=== PATIENT | female | born 2005 | race African-American/Black ===

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

== ENCOUNTER 2024-02-23 05:15 | Inpatient (IN) | payer OTHER, SELFPAY ==
[2024-02-23] VITALS (11 sets, daily range): BP systolic 121–137; BP diastolic 76–82; PULSE 66–121; RESP 11–40; TEMP 36.4–37.3; O2SAT 100; BMI 28.9
--- NOTE | ~2024-02-23 | MR_ITS ---
EXAMINATION: MR brain/brain stem wo/w con DATE: 02/23/2024 16:18 INDICATION: Seizures TECHNIQUE: Magnetic resonance imaging (MRI) of the brain and brainstem was performed without and with 15 mL Multihance intravenous contrast. Sequences included sagittal and axial T1-weighted SE, axial d iffusion-weighted FS SE, axial T2*-weighted GRE, axial T2-weighted FLAIR Propeller, axial T2-weighted Propeller, coronal T2-weighted FLAIR, and coronal T1-weighted 3D FSPGR. Postcontrast axial, sagittal and coronal T1-weighted SE was obtained. Apparent diffusion coefficient (ADC) maps were created. COMPARISON: CT dated 02/23/2024 and 12/16/2018 FINDINGS: There are no areas of restricted diffusion to suggest acute infarction. No intracranial hemorrhage or abnormal intracranial mass lesion. There are no intraparenchymal signal abnormalities seen on the ot her pulse sequences. The ventricles are symmetric and normal in size. The bilateral hippocampi appear normal and symmetric. No evident patten matter heterotopias or other evident normal migrational abnorm alities. There are no abnormal extra-axial fluid collections. Flow voids are seen in the cerebral art eries on the T2-weighted sequences consistent with their expected patency. Visualized orbits and soft tissues are unremarkable. There are no areas of abnormal enhancement on the post contrast images. IMPRESSION: 1. Normal brain MR. Reviewed, dictated and finalized at location A. IMPRESSION: 1. Normal brain MR.
--- NOTE | ~2024-02-23 | CT_ITS ---
Non-contrast Head CT History: Seizure Technique: Axial non-contrast imaging of the brain was performed. Dose reduction technique was used on this scan by utilizing automated exposure control and iterative reconstruction technique. The dose -length product (DLP) was 832.33 mGy-cm. Findings: There is no evidence of intracranial hemorrhage, mass lesion, or acute infarct. Brain par enchyma appears normal. The ventricles and subarachnoid spaces are normal in size. The calvarium ap pears normal. The visualized paranasal sinuses and mastoid air cells are clear. Impression: No significant abnormality seen. Reviewed, dictated and finalized at location . Impression: No significant abnormality seen.
--- NOTE | 2024-02-23 05:22 | PM.IMHP ---
H&P: HPI History of Present Illness Date/Time: 02/23/24 05:22 Chief Complaint: Possible seizure Narrative: 18-year-old female with past medical history of anxiety and depression who presented to the ER at [facility] for possible seizure. Information comes from ER physician report and documentation from the outside facility. Patient had seizure-like activity while riding in the car with family members. Episode lasted less than a minute. EMS also reported the patient had another episode of seizure-like activity lasting 20-30 seconds. She received 10 mg of intranasal Versed. On arrival to the hospital patient was sleepy and reportedly had another episode of seizure-like activity lasting about 20 seconds. She received 2 mg of Ativan at that time. She stated that the episode started right after she ate a piece of a marijuana gummy that family friend had given her. She had never tried a marijuana edibles before. She denies any history of use of benzodiazepines. Her urine drug screen was positive for benzodiazepines. Her urine drug screen was collected about an hour and half to 2 hours after she had received intranasal Versed and IV Ativan. I am uncertain if the administration of these medications in such a short interval prior to collection of the sample which cause positive urine drug screen. Patient denies any preceding headache, vision changes, fever or other ill symptoms. She states that she has long history of anxiety and depression but has not had her hydroxyzine or sertraline refilled since July because she is no longer on her parent's insurance. CT scan of the brain demonstrated no acute process at outside facility. CBC from outside facility demonstrated hemoglobin 10.5 white blood cell count 7 platelet count 304 sodium was 135 potassium 3.3 chloride 110 BUN 9 creatinine 0.9 serum bicarb 20 and glucose of 115. EKG from outside facility was reviewed and demonstrated right bundle-branch block patient's heart rate initially at the outside facility was between 110 and 130. Her heart rate did come down to 84. She reportedly received 2 L of normal saline bolus. Her urine drug screen at outside facility demonstrated marijuana and benzodiazepines. Patient is somnolent. The number she provides for her mother does not work in is different than the number provided in the computer. Nursing staff was unable to reach patient's family on either phone line to get further report of recent events. Review of Systems Review of Systems: 12 systems were reviewed with pertinent positives and negatives per HPI. Except as documented in the HPI, all other systems were reviewed and are negative. [facility] Past Medical History Medical History (Updated 02/23/24 @ 07:34 by Oliva Fagan DO) Anxiety Depression Iron deficiency anemia Surgical History Surgical History (Updated 02/23/24 @ 07:06 by Oliva Fagan DO) No history of previous surgery Social History Social History (Updated 02/23/24 @ 07:07 by Oliva Fagan DO) Social History: The patient reports that her mother is her emergency contact. However she states that she lives with her grandmother. She denies ever having any history of tobacco use alcohol use or illicit substance use before she is marijuana edibles today. Code status: Full code Surrogate decision maker: Mother Smoking status: Never smoker Alcohol intake: unknown Substance use: unknown Substance use type: marijuana Do You Feel Safe in your Home?: Yes Lack of Transportation: No Lack of Food: Never True Current Housing: I Have Housing Concerned About Future Housing: No Difficulty Paying Gas/Electric Bills: No Difficulty Paying for Meds: YES Currently Unemployed: Decline to Answer Education: Decline to Answer Difficulty w/ Childcare or Family Care: No Spiritual care concerns: No Meds Home Medications and Allergies Home Medications Medicati
--- NOTE | 2024-02-23 05:27 | ADMGEN ---
This patient, Yaritza Patel, was admitted to Medical Room 343-01. Patient/family oriented to hospital policies and general routines including ID bracelet, bed and alarms, visiting hours, pain management, procedures, bathroom and other care routines, personal items, smoking policy, room service/diet, and visiting hours. Information on how to activate the Rapid Response Team has been discussed. Patient/Family are encouraged to report perceived risks to care and to ask questions if they do not understand what they are told or what they should do.
[2024-02-23] MEDS: levETIRAcetam 1000MG/NACL100ML 1,000 MG/100 ML BAG 400 MG IVPB ×2 (05:30→11:03)
[2024-02-23] MEDS: SODIUM CHLORIDE 0.9% IV 1,000 ML 100 ML IV CONT ×2 (05:40→16:48)
[2024-02-23 05:43] LABS: Glucose Point of Care 97 mg/dl (65-105)
--- NOTE | 2024-02-23 05:59 | ECG_ITS ---
Test Date: 2024-02-23 06:12:13 Measurements Intervals [place] Rate: 72 P: 64 WA: 173 QRS: 11 QRSD: 136 T: 46 QT: 399 QTc: 439 Interpretive Statements SINUS RHYTHM WITH SINUS ARRHYTHMIA RIGHT BUNDLE BRANCH BLOCK BASELINE ARTIFACT- V1 ABNORMAL ECG No previous ECG available for comparison Electronically Signed On 02-23-2024 07:49:57 CDT by Alejandro Bojorquez D.O.
[2024-02-23 06:30] LABS: Hematocrit 31.6 % (37.0-47.0); Hemoglobin 9.8 g/dL (12.0-15.0); Mean Corpuscular Hemoglobin 28.6 pg (26-34); Mean Corpuscular Volume 92.1 fl (80-100); Platelet Count Result 229 k/mm3 (150-375); Red Blood Count 3.43 M/mm3 (4.2-5.4); Red Cell Distribution Width 13.3 % (11.5-14.5); White Blood Count 6.5 K/mm3 (4.5-10.0)
[2024-02-23 06:43] LABS: Alanine Aminotransferase 13 U/L (6-35); Albumin Level 3.5 g/dL (3.5-5.1); Alkaline Phosphatase 55 U/L (38-126); Anion Gap 8 mmol/L (4-12); Aspartate Amino Transferase 20 U/L (14-36); Bilirubin,Total 0.4 mg/dL (0.2-1.3); Blood Urea Nitrogen 5 mg/dL (7-17); Calcium 8.4 mg/dL (8.4-10.2); Carbon Dioxide 22 mmol/L (22-30); Chloride 108 mmol/L (98-107); Estimated CRCL calculation 94 ml/min; Estimated Glomerular Filt Rate > 60; Glucose 89 mg/dL (65-110); Potassium 3.7 mmol/L (3.4-5.0); Sodium 138 mmol/L (137-145)
[2024-02-23] MEDS: ENOXAPARIN 40 MG/0.4 ML SYRINGE SUB-Q (09:00)
[2024-02-23] MEDS: FERROUS SULFATE 325 MG TABLET DR PO (09:00)
[2024-02-23] MEDS: LORazepam INJ (*CRX) 2 MG/ML VIAL 1 MG IV PUSH (10:27)
--- NOTE | 2024-02-23 10:29 | PM.IMPN ---
Progress Note: A&P Assessment and Plan (1) Seizure-like activity: Code(s): R56.9 - Unspecified convulsions Status: Acute Assessment and Plan: 02/23/24: New onset seizures,Patient had 3 other witnessed episodes seizure activity after ingesting marijuana gummy. No family history of seizure activity noted per patient report Tonic clonic seizure activity today witnessed by nursing Increase Keppra to 1500 mg b.i.d. Patient was given 1 g of Keppra during seizure today along with 1 mg Ativan IV push followed by another 2 mg Ativan IV push Will get CT of the brain today MRI ordered Neurology consulted Ativan changed to 2 mg q.1 hour as needed for seizure activity We will go ahead and repeat labs today Urine drug screen outside hospital was positive for benzodiazepines however patient denied history of use. Urine drug screen was noted to be drawn after she was given intranasal Versed and Ativan for her 1st couple seizures Acute 2 hour neuro checks Transfer to IMU (2) Iron deficiency anemia: Qualifiers: Iron deficiency anemia type: unspecified iron deficiency Qualified Code(s): D50.9 - Iron deficiency anemia, unspecified Code(s): D50.9 - Iron deficiency anemia, unspecified Status: Acute Assessment and Plan: 02/23/24: Hemoglobin 9.8, MCV 92.1 Will check for sickle cell, sed rate, iron, ferritin, TSH, vitamin B12, and folic acid Continue ferrous sulfate Continue to trend (3) Anxiety: Code(s): F41.9 - Anxiety disorder, unspecified Status: Acute Assessment and Plan: 02/23/24: Hydroxyzine 25 mg capsule held has patient states that she has not taking these medications since the end july when she was still on her parents insurance (4) Depression: Code(s): F32.A - Depression, unspecified Status: Acute Assessment and Plan: 02/23/24: Will hold sertraline 100 mg tab as patient states that she has not been taking this medication since the end july when she was taken off her parent's insurance. Time Spent With Patient Time with patient: Greater than 35 minutes Subjective Date/time seen: 02/23/24 10:29 Interval history: This is a 18-year-old female with a significant past medical history of anxiety and depression who presented originally to [facility] for possible seizures. She was transferred to our facility for neuro coverage. Patient had witnessed seizure by friends after ingesting a marijuana gummy and the 1st episode lasted for less than 1 minute. EMS noted another seizure EN route to [facility] lasting 20-30 seconds. She was given 10 mg of intranasal Versed at that time. On arrival to the hospital she was noted to have another seizure lasting about 20 seconds and received 2 mg of Ativan at that time. Workup in the hospital included labs that revealed a hemoglobin of 9.8 initially otherwise unremarkable. She does have a procalcitonin pending. Patient did have a urine drug screen at the outside hospital which was positive for benzos. Patient denied use of benzos prior to this admission. She did receive Versed and Ativan a few times before this was drawn however it is unclear at this time if the seizure activity is from benzodiazepine withdrawal. When I originally assessed patient she was alert to voice and oriented x3 very lethargic, fatigued in the bed. She denies any fever, chills, nausea, vomiting, diarrhea, abdominal pain, chest pain, shortness a breath. She does state that she has a headache. When I left her room transport was there to get her for MRI. I was then called around 10:20 this morning from bedside nursing who states patient is currently in active tonic clonic seizure and nursing was in the middle of giving 1 mg IV Ativan. After 5 minutes patient was still noted to be in tonic clonic seizure and we repeated a dose of Ativan 2 mg IV push. Jerking stopped and patient lying quietly in the bed
[2024-02-23] MEDS: LORazepam INJ (*CRX) 2 MG/ML VIAL IV PUSH ×3 (10:41→19:15)
--- NOTE | 2024-02-23 11:00 | PC.NURSE ---
Coil Wrapper called to bedside at 1023 by care coordination for seizure activity. REJI Hope was notified and returned to bedside . New orders given - see MAR. Patient to be transferred to IMU for q 2H Neuro checks
--- NOTE | 2024-02-23 11:36 | PC.NURSE ---
Grandmother Bernice called to check on patient. Updated contact numbers and informed her of patient status and transfer to IMU
[2024-02-23 12:03] LABS: Basophils Absolute Auto 0.1 K/mm3 (0.0-0.1); Basophils Percent Auto 1.4 % (0.2-1.2); Eosinophils Absolute Auto 0.1 K/mm3 (0-0.3); Eosinophils Percent Auto 1.9 % (0-4.4); Hematocrit 32.1 % (37.0-47.0); Immature Granulocyte Absolute 0.02 K/mm3 (0.00-0.031); Immature Granulocyte Percent A 0.3 % (0-0.5); Lymphocytes Percent Auto 27.9 % (18.3-44.2); Mean Corpuscular HGB Conc 31.2 g/dl (32-36); Mean Corpuscular Hemoglobin 27.8 pg (26-34); Mean Corpuscular Volume 89.2 fl (80-100); Monocytes Absolute Auto 0.5 K/mm3 (0.1-0.6); Monocytes Percent Auto 8.7 % (2.6-8.5); Neutrophils Absolute Auto 3.4 K/mm3 (1.3-6.7); Neutrophils Percent Auto 59.8 % (45.5-73.1); Platelet Count Result 253 k/mm3 (150-375); Red Cell Distribution Width 13.2 % (11.5-14.5); White Blood Count 5.7 K/mm3 (4.5-10.0)
[2024-02-23 12:04] LABS: Immature Reticulocyte Fraction 17.5 % (3.0-15.9); Reticulocyte Percent 1.52 % (0.7-4.3); Reticulocytes Absolute 0.05 10^6/uL (0.02-0.10)
[2024-02-23 12:13] LABS: Alanine Aminotransferase 12 U/L (6-35); Albumin Level 3.6 g/dL (3.5-5.1); Alkaline Phosphatase 48 U/L (38-126); Anion Gap 8 mmol/L (4-12); Aspartate Amino Transferase 19 U/L (14-36); Bilirubin,Total 0.5 mg/dL (0.2-1.3); Blood Urea Nitrogen 4 mg/dL (7-17); Calcium 8.4 mg/dL (8.4-10.2); Carbon Dioxide 23 mmol/L (22-30); Chloride 107 mmol/L (98-107); Estimated CRCL calculation 107 ml/min; Estimated Glomerular Filt Rate > 60; Glucose 83 mg/dL (65-110); Potassium 3.9 mmol/L (3.4-5.0); Sodium 138 mmol/L (137-145)
--- NOTE | 2024-02-23 12:27 | P.PNCROSS_ITS ---
Event Note Event Note Event Note: Rapid response called around 1215 today for another tonic clonic seizure. She w as given 2 mg IVP Ativan and already received her extra dose of Keppra [address] scan was negative for any acute abnormality. We added Valium 5 mg IVP BID for longer acting seizure control. She was given a dose during the rapid response and will be moved to IMU.
[2024-02-23 13:05] LABS: Iron 168 ug/dL (37-170)
[2024-02-23] MEDS: diazePAM INJ (*CRX) 10 MG/2 ML SYRINGE 5 MG IV PUSH ×2 (13:05→16:48)
[2024-02-23 13:14] LABS: Percent Iron Saturation 40 % (20-50)
--- NOTE | 2024-02-23 13:14 | PC.NURSE ---
This patient, Yaritza Patel, was received from [[id number] ] on 02/23/24 at 1225. Patient/family oriented to unit policies and routines
[2024-02-23 13:19] LABS: Folic Acid 7.8 ng/mL (2.76->20)
[2024-02-23 13:42] LABS: Ferritin 4.75 ng/mL (6.24-137)
--- NOTE | 2024-02-23 15:31 | WPDNEURCNPN ---
Assessment and Plan Assessment and plan (1) Seizure-like activity: Code(s): R56.9 - Unspecified convulsions Status: Acute (2) Depression: Code(s): F32.A - Depression, unspecified Status: Acute (3) Anxiety: Code(s): F41.9 - Anxiety disorder, unspecified Status: Acute Plan At this time we do not have any significant objective data or even a good history but apparently she has had spells suggestive of generalized type seizure and she has now been started on Keppra 15 mg twice a day. Out suggest to continue to observe her a keep on anticonvulsants and maintain seizure precautions. I shall follow up the results of MRI and EEG and decide whether she requires a spinal tap but will be a next step in view of the possibility of encephalitis particularly the summertime. Consult date: 02/23/24 HPI: Yaritza Patel is a 18 year old female With history of tremors or seizure-like spells on and off in the last 24 hours. She presented to at [facility] and was transferred over here last night. She has had a spell after midnight and she was given Keppra. After that she has been drowsy. Urine tested positive for benzodiazepines and cannabis. No prior history of seizures. She has not had any febrile illness or trauma. However patient is drowsy is not a reliable historian at this time. No family members are available at this time. Patient lives with the grandmother and works at [employer]. The patient was awake and a talked at times but seems to be drowsy and does not want to talk too much. Review of Systems Review of Systems: ROS unobtainable: Yes unobtainable due to mental status ( Patient is a drowsy and did not cooperate well for questioning) [facility] Past Medical History Medical History Anxiety Depression Iron deficiency anemia Surgical History Surgical History No history of previous surgery Social History Social History Social History: The patient reports that her mother is her emergency contact. However she states that she lives with her grandmother. She denies ever having any history of tobacco use alcohol use or illicit substance use before she is marijuana edibles today. Code status: Full code Surrogate decision maker: Mother Smoking status: Never smoker Alcohol intake: unknown Substance use: unknown Substance use type: marijuana Do You Feel Safe in your Home?: Yes Lack of Transportation: No Lack of Food: Never True Current Housing: I Have Housing Concerned About Future Housing: No Difficulty Paying Gas/Electric Bills: No Difficulty Paying for Meds: YES Currently Unemployed: Decline to Answer Education: Decline to Answer Difficulty w/ Childcare or Family Care: No Spiritual care concerns: No Meds Home Medications and Allergies Home Medications Medication Instructions Recorded Confirmed Type hydroxyzine pamoate 25 mg capsule 25 mg PO QHS 10/18/19 02/23/24 History sertraline 100 mg tablet 100 mg PO QHS 10/18/19 02/23/24 History ferrous sulfate 325 mg (65 mg 325 mg PO DAILY 02/23/24 02/23/24 History iron) tablet (iron) Allergies Allergy/AdvReac Type Severity Reaction Status Date / Time No Known Allergies Allergy Unverified 11/03/18 17:59 Vital Signs Vital Signs - 24 hr 02/23/24 05:15 02/23/24 05:00 02/23/24 05:13 Temperature 36.4 C Pulse Rate 86 115 H Respiratory Rate 16 Blood Pressure 125/79 Pulse Oximetry 100 Oxygen Delivery Room Air 02/23/24 10:46 02/23/24 08:00 02/23/24 12:00 Temperature 36.7 C Pulse Rate 89 100 99 Respiratory Rate 16 40 H Blood Pressure 121/80 126/77 Pulse Oximetry 100 100 Oxygen Delivery 02/23/24 12:05 02/23/24 12:00 Temperature Pulse Rate 99 Respiratory Rate 11 L Blood Pressure 13
--- NOTE | 2024-02-23 16:00 | WPDNEUROLOGY ---
Neurology EEG Report General Information Date of Study: 02/23/24 TEST electroencephalogram DIAGNOSIS possible seizure-like spells CONDITION OF RECORDING inpatient bedside recording EEG NUMBER [id number] CLINICAL HISTORY History of possible seizure-like activity. It was noted the patient has received benzodiazepines and also is on Keppra EEG DESCRIPTION The background activity is poorly defined mixed frequency activity. There is no significant anteroposterior gradient. Patient appears drowsy throughout the recording. No focal or paroxysmal epileptiform abnormality was seen. Hyperventilation or photic stimulation were not Performed. IMPRESSION The background activity supportive organized and show superimposed beta activity most likely due to medication effect such as benzodiazepines. No focal or paroxysmal epileptiform abnormality seen. A follow-up study Or prolonged EEG recording in future should be considered if necessary.
[2024-02-23 18:42] LABS: Chlamydia trachomatis NOT DETECTED (NOT DETECTE); Neisseria gonorrhoeae PCR NOT DETECTED (NOT DETECTE)
[2024-02-23] MEDS: levETIRAcetam 1500MG/NACL100ML 1,500 MG/100 ML BAG 400 MG IVPB (21:22)
[2024-02-24] VITALS (14 sets, daily range): BP systolic 107–134; BP diastolic 56–78; PULSE 72–112; RESP 16–20; TEMP 36.4–37.4; O2SAT 100
[2024-02-24] MEDS: SODIUM CHLORIDE 0.9% IV 1,000 ML 100 ML IV CONT (02:27)
--- NOTE | 2024-02-24 03:59 | PC.NURSE ---
During vitals/assessment round, pt c/o headache, then stated I don't feel good. Pt then began tapping index finger rapidly, repeating I don't feel good. Pt then flipped face down and started full body shaking. Activity lasted less than 1 minute.
[2024-02-24] MEDS: LORazepam INJ (*CRX) 2 MG/ML VIAL IV PUSH (07:57)
--- NOTE | 2024-02-24 08:51 | PM.IMPN ---
Progress Note: A&P Assessment and Plan (1) Seizure-like activity: Code(s): R56.9 - Unspecified convulsions Status: Acute Assessment and Plan: New onset seizures,Patient had 3 other witnessed episodes seizure activity after ingesting marijuana gummy. No family history of seizure activity noted per patient report. Keppra started and now increased to [address] brain normal. MRI brain normal. Neurology consulted EEG showing that the background activity consistent with medication effect such as benzodiazepines. No focal or paroxysmal epileptiform abnormality seen. Patient on scheduled Diazepam 2mg IV BID and was given 2 mg Ativan IV push today for another seizure UDS outside hospital was positive for benzodiazepines and marijuana but she received benzos prior to sample being drawn UPT negative at OSH Discussed with neurology who recommended LP. Check BEL Patient is oriented but somnolent so called mother (who patient would want to be a decision maker for her) but no answer. Will order LP and have RN try to get mother's consent (or patients if she becomes more awake and alert) (2) Iron deficiency anemia: Qualifiers: Iron deficiency anemia type: unspecified iron deficiency Qualified Code(s): D50.9 - Iron deficiency anemia, unspecified Code(s): D50.9 - Iron deficiency anemia, unspecified Status: Acute Assessment and Plan: Hemoglobin 9.8, MCV 92.1 Iron studies normal. Ferritin low at 4.8 to suggest low iron stores. Sickle cell pending. TSH, folate normal. B12 low end of normal. Check MMA. B12 injection x1. (3) Anxiety: Code(s): F41.9 - Anxiety disorder, unspecified Status: Acute Assessment and Plan: Patient on Hydroxyzine and sertraline Patient has been noncompliant with her medications since July Consider overdose of medications since her depression is not treated. Will discuss when she is more awake and alert. (4) Depression: Code(s): F32.A - Depression, unspecified Status: Acute Assessment and Plan: As above Plan DVT prophylaxis - Lovenox Code status - full Subjective Date/time seen: 02/24/24 08:51 Interval history: 18yo female with hx of anxiety and depression who presented originally to [facility] for possible seizures. She was transferred to our facility for neuro coverage. Assuming care. Chart reviewed. Patient is oriented but somnolent so hx is limited. RN states patient had a seizure this morning and received Ativan. She also is on scheduled diazepam. RN states patient starts shaking all over then rolls on her side. HR climbs and she has nonverbal vocalizations. Exam Narrative: AF Gen - NARD Neck - neck is supple with negative Kernig's and Brudzinski Chest - CTA bilaterally, nml RR CV - RRR S1/S2. Tele showing occasional episodes of tachycardia Abd - Soft, NT/ND, Positive BS Ext - No pedal edema Neuro - Somnolent, has trouble staying awake. She is oriented x4. No focal weakness. Psych - difficult to assess Skin - Warm and dry Objective Data Vital Signs Vital Signs: Vital Signs - 24 hr 02/23/24 10:46 02/23/24 12:00 02/23/24 12:05 Temperature 98.0 F Pulse Rate 89 99 99 Respiratory Rate 16 40 H 11 L Blood Pressure 121/80 126/77 137/76 Pulse Oximetry 100 100 100 Oxygen Delivery 02/23/24 12:00 02/23/24 16:00 02/23/24 14:00 Temperature 99.2 F Pulse Rate 66 84 Respiratory Rate 20 Blood Pressure 125/77 Pulse Oximetry 100 Oxygen Delivery Room Air 02/23/24 16:00 02/23/24 18:00 02/23/24 16:00 Temperature Pulse Rate 97 113 H Respiratory Rate Blood Pressure Pulse Oximetry Oxygen Delivery Room Air 02/23/24 20:00 02/23/24 20:00 02/24/24 00:00 Temperature 98.0 F Pulse Rate 106 H Respiratory Rate 19 Blood Pressure 125/82 Pulse Oximetry 100 Oxygen Delivery Room Air Room Air 02/24/24 0
[2024-02-24] MEDS: levETIRAcetam 1500MG/NACL100ML 1,500 MG/100 ML BAG 400 MG IVPB ×2 (10:04→21:06)
[2024-02-24] MEDS: FERROUS SULFATE 325 MG TABLET DR PO (10:05)
[2024-02-24] MEDS: CYANOCOBALAMIN INJ 1,000 MCG/ML VIAL 1000 MCG IM (10:19)
[2024-02-24 10:20] LABS: SPREG INTERNAL CONTROL Positive; Serum Qual hCG Negative
[2024-02-24 10:53] LABS: Prolactin 10.7 ng/mL
--- NOTE | 2024-02-24 18:27 | WPDNEUROPN ---
Progress Note: A&P Assessment and Plan (1) Seizure-like activity: Code(s): R56.9 - Unspecified convulsions Status: Acute Plan The MRI of the brain and EEG did not show any significant abnormalities. A spinal tap has been ordered and will be done by Interventional Radiology and I shall follow the results of these. In the meanwhile I agree that we should hold off any benzodiazepines and keep her on Keppra 1500 mg twice a day which is a fairly decent does as anticonvulsant. Despite this he continues to have some spells which according to the observers there are suspicious of possible pseudoseizures. I shall be glad to follow. I would suggest to check heard prolactin level within 30 minutes of having a seizure-like spell If possible. Subjective Date/time seen: 02/24/24 18:27 Interval history: Ppatient continues to have spells suspicious of seizures versus pseudoseizures. She remains drowsy and does not really communicate very much. Other family members were around when I came to see her again today I discussed since the hospitalist and to a spinal tap was ordered since her MRI scan of the brain and EEG did not show any abnormality. Review of Systems Review of Systems: Patient does not offer any other history or symptoms. Exam Narrative: Patient is drowsy however able to talk. No aphasia or dysarthria. No significant additional neurologic findings were noted. Moving all her limbs. No involuntary movements are seen. Objective Data Vital Signs Vital Signs: Vital Signs - 24 hr 02/23/24 20:00 02/23/24 20:00 02/24/24 00:00 Temperature 36.7 C Pulse Rate 106 H Respiratory Rate 19 Blood Pressure 125/82 Pulse Oximetry 100 Oxygen Delivery Room Air Room Air 02/24/24 00:00 02/23/24 20:00 02/23/24 22:00 Temperature 36.5 C Pulse Rate 77 121 H 74 Respiratory Rate 18 Blood Pressure 118/74 Pulse Oximetry 100 Oxygen Delivery 02/24/24 00:00 02/24/24 02:00 02/24/24 04:00 Temperature Pulse Rate 72 98 Respiratory Rate Blood Pressure Pulse Oximetry Oxygen Delivery Room Air 02/24/24 04:00 02/24/24 04:00 02/24/24 06:00 Temperature 36.4 C Pulse Rate 98 77 74 Respiratory Rate 18 Blood Pressure 107/56 L Pulse Oximetry 100 Oxygen Delivery 02/24/24 08:00 02/24/24 12:00 02/24/24 08:15 Temperature 36.4 C L 37.2 C Pulse Rate 112 H 93 93 Respiratory Rate 18 16 Blood Pressure 125/73 121/78 Pulse Oximetry 100 100 Oxygen Delivery 02/24/24 08:15 02/24/24 10:00 02/24/24 12:00 Temperature Pulse Rate 93 89 97 Respiratory Rate 16 Blood Pressure Pulse Oximetry 100 Oxygen Delivery Room Air 02/24/24 12:00 02/24/24 16:00 Temperature 37.4 C Pulse Rate 95 Respiratory Rate 20 Blood Pressure 108/69 Pulse Oximetry 100 Oxygen Delivery Room Air Intake/Output Intake/Output: Intake & Output 02/21/24 02/22/24 02/23/24 02/24/24 23:59 23:59 23:59 23:59 Intake Total 1580 2375 Output Total 600 Balance 1580 1775 Meds/Results Medications: Active Medications Generic Name Dose Route Start Last Admin Trade Name Freq PRN Reason Stop Dose Admin Acetaminophen 650 mg 02/23/24 05:15 Acetaminophen 325 Mg Tablet PO Q4H PRN Mild Pain (1-3) or Fever Enoxaparin Sodium 40 mg 02/23/24 09:00 02/23/24 09:00 Enoxaparin 40 Mg/0.4 Ml Syringe SUB-Q 40 mg DAILY RENE Administration Ferrous Sulfate 325 mg 02/23/24 08:00 02/24/24 10:05 Ferrous Sulfate [address] PO 325 mg DAILY@0800 RENE Administration Levetiracetam 1,500 mg in 100 mls @ 400 mls/hr 02/23/24 21:00 02/24/24 10:30 Keppra Iv IVPB Infused Q12HR RENE Infusion Lorazepam 2 mg 02/23/24 10:35 02/24/24 07:57 Lorazepam Inj (*Crx) 2 Mg/Ml Vial IV PUSH 2 mg Q1H PRN Administration seizure Ondansetron HCl 4 mg 02/23/24 05:15 Ondansetron Inj 4 Mg/2 Ml Vial IV PUSH Q6H PRN Nausea
[2024-02-25] VITALS (16 sets, daily range): BP systolic 104–123; BP diastolic 57–76; PULSE 68–93; RESP 16–20; TEMP 36.5–37.1; O2SAT 100
--- NOTE | 2024-02-25 04:25 | PC.NURSE ---
Patient used the call light at 0343 to say she wasn't feeling well. RN entered room to patient laying on her left side shaking her R hand. She then began full body shaking, arching her back, R arm and leg shaking more than left, and turned on her face into the mattress, moaning and crying. Activity lasted approximately 2-3 minutes. Patient used the call light again at 0358 to ask for water.
[2024-02-25 05:10] LABS: Basophils Absolute Auto 0.1 K/mm3 (0.0-0.1); Eosinophils Absolute Auto 0.1 K/mm3 (0-0.3); Eosinophils Percent Auto 2.4 % (0-4.4); Hematocrit 30.1 % (37.0-47.0); Hemoglobin 9.5 g/dL (12.0-15.0); Immature Granulocyte Absolute 0.01 K/mm3 (0.00-0.031); Immature Granulocyte Percent A 0.2 % (0-0.5); Lymphocytes Absolute Auto 1.51 K/mm3 (0.9-3.2); Lymphocytes Percent Auto 26.2 % (18.3-44.2); Mean Corpuscular HGB Conc 31.6 g/dl (32-36); Mean Corpuscular Hemoglobin 27.9 pg (26-34); Mean Corpuscular Volume 88.5 fl (80-100); Monocytes Absolute Auto 0.5 K/mm3 (0.1-0.6); Monocytes Percent Auto 8.3 % (2.6-8.5); Neutrophils Absolute Auto 3.6 K/mm3 (1.3-6.7); Neutrophils Percent Auto 61.9 % (45.5-73.1); Platelet Count Result 220 k/mm3 (150-375); Red Cell Distribution Width 13.2 % (11.5-14.5); White Blood Count 5.8 K/mm3 (4.5-10.0)
[2024-02-25 05:24] LABS: Alanine Aminotransferase 12 U/L (6-35); Albumin Level 3.6 g/dL (3.5-5.1); Alkaline Phosphatase 52 U/L (38-126); Anion Gap 12 mmol/L (4-12); Aspartate Amino Transferase 20 U/L (14-36); Bilirubin,Total 0.4 mg/dL (0.2-1.3); Blood Urea Nitrogen 8 mg/dL (7-17); Calcium 8.9 mg/dL (8.4-10.2); Carbon Dioxide 20 mmol/L (22-30); Chloride 105 mmol/L (98-107); Estimated CRCL calculation 94 ml/min; Estimated Glomerular Filt Rate > 60; Glucose 75 mg/dL (65-110); Potassium 3.4 mmol/L (3.4-5.0); Sodium 137 mmol/L (137-145)
[2024-02-25] MEDS: SODIUM CHLOR 3% 15 ML NEB (RESPIRATORY THERAPY) 6 ML INHALATION (05:30)
[2024-02-25] MEDS: FERROUS SULFATE 325 MG TABLET DR PO (09:42)
[2024-02-25] MEDS: levETIRAcetam 1500MG/NACL100ML 1,500 MG/100 ML BAG 400 MG IVPB ×2 (09:42→20:15)
--- NOTE | 2024-02-25 11:25 | PM.IMPN ---
Progress Note: A&P Assessment and Plan (1) Seizure-like activity: Code(s): R56.9 - Unspecified convulsions Status: Acute Assessment and Plan: New onset seizure-like activity. Patient had 3 other witnessed episodes seizure activity after ingesting marijuana gummy. No family history of seizure activity noted per patient report. Keppra started and now increased to [address] brain normal. MRI brain normal. Neurology consulted EEG showing that the background activity consistent with medication effect such as benzodiazepines. No focal or paroxysmal epileptiform abnormality seen. Patient was on scheduled Diazepam 2mg IV BID and had 2 mg Ativan IV push available as needed for seizures UDS outside hospital was positive for benzodiazepines and marijuana but she received benzos prior to sample being drawn UPT negative at OSH and here Discussed with neurology who recommended LP. LP ordered. BEL ordered Scheduled diazepam stopped. Could be sill feeling the effects of this mediation. Last Ativan dose was 02/23 at 0757 so >24 hours ago. Continue Keppra for now. (2) Iron deficiency anemia: Qualifiers: Iron deficiency anemia type: unspecified iron deficiency Qualified Code(s): D50.9 - Iron deficiency anemia, unspecified Code(s): D50.9 - Iron deficiency anemia, unspecified Status: Acute Assessment and Plan: Hemoglobin 9.8, MCV 92.1 Iron studies normal. Ferritin low at 4.8 to suggest low iron stores. Sickle cell negative. TSH, folate normal. B12 low end of normal. Check MMA. B12 injection x1. Start oral B12 (3) Anxiety: Code(s): F41.9 - Anxiety disorder, unspecified Status: Acute Assessment and Plan: Patient on Hydroxyzine and sertraline Patient has been noncompliant with her medications since July Consider overdose of medications since her depression is not treated. Consider starting at lower dose (4) Depression: Code(s): F32.A - Depression, unspecified Status: Acute Assessment and Plan: As above Plan DVT prophylaxis - Lovenox Code status - full Subjective Date/time seen: 02/25/24 11:25 Interval history: 18yo female with hx of anxiety and depression who presented originally to [facility] for possible seizures. She was transferred to our facility for neuro coverage. Patient is awake and alert. She feels better. No issues overnight per RN. Slept okay. No CP or SOB. Exam Narrative: AF 98.8 112/63 79 18 100% ra Gen - NARD HEENT - perrl, eomi, tongue midline Neck - neck is supple with no meningismus signs. Chest - CTA bilaterally, nml RR CV - RRR S1/S2. Tele showing occasional episodes of sinus tachycardia Abd - Soft, NT/ND, Positive BS Ext - No pedal edema Neuro -awake and alert. Oriented x4. No focal weakness. Soft speech. Psych -subdued. Skin - Warm and dry Objective Data Vital Signs Vital Signs: Vital Signs - 24 hr 02/24/24 12:00 02/24/24 12:00 02/24/24 12:00 Temperature 98.9 F Pulse Rate 93 97 Respiratory Rate 16 Blood Pressure 121/78 Pulse Oximetry 100 Oxygen Delivery Room Air 02/24/24 16:00 02/24/24 19:58 02/24/24 16:30 Temperature 99.4 F 97.9 F Pulse Rate 95 91 102 H Respiratory Rate 20 20 Blood Pressure 108/69 134/77 Pulse Oximetry 100 100 Oxygen Delivery 02/24/24 16:30 02/24/24 18:00 02/24/24 20:00 Temperature Pulse Rate 104 H Respiratory Rate Blood Pressure Pulse Oximetry Oxygen Delivery Room Air Room Air 02/24/24 20:00 02/24/24 22:00 02/24/24 23:45 Temperature Pulse Rate 99 72 Respiratory Rate Blood Pressure Pulse Oximetry Oxygen Delivery Room Air 02/25/24 00:00 02/25/24 00:00 02/25/24 02:00 Temperature 97.7 F Pulse Rate 93 77 75 Respiratory Rate 18 Blood Pressure 104/57 L Pulse Oximetry 100 Oxygen Delivery 02/25/24 04:00 02/25/24 04:00 02/25/24 03
--- NOTE | 2024-02-25 13:00 | PC.NURSE ---
Spoke with [facility] transfer center. updated on current condition and most recent set of vital signs. Currently awaiting bed, they will call for updates Qshift until she has a bed.
--- NOTE | 2024-02-25 18:52 | PC.NURSE ---
[facility] transferred called @ 1840 and informed RN patient was assigned to bed 114-85 at the [facility]. Accepting physician is Dr. Ashok Pardo, neurology attending. Attempted to call report @ 1850. Informed that the bed was not assigned to a oncoming nurse yet at [facility], and we would be called back when able.
--- NOTE | 2024-02-25 20:37 | PC.NURSE ---
Called receiving CHARY Rodriguez to alert to patient's departure and that she has been given her night dose of keppra.
--- NOTE | 2024-02-26 07:07 | PM.TDS ---
Transfer Discharge Sum: Prov Provider Date of admission: 02/23/24 11:54 Primary care physician: PHOTOGRAPHIC [employer]ORAT[employer] SUPERVISOR PHYSICIAN Admitting clinician: Oliva Fagan DO Consults: 02/23/24 Consult to Physician Routine Comment: Consulting Provider: Jeni Hunt banquet server on call/MD group to consult: Neurology Reason for consultation: Seizure-like activity Has provider been notified: Yes DS: Admitting Diagnosis Discharge Date 02/25/24 Admitting Diagnosis Possible seizures DS: Discharge Diagnosis Discharge Diagnosis (1) Seizure-like activity: Code(s): R56.9 - Unspecified convulsions Status: Acute (2) Iron deficiency anemia: Qualifiers: Iron deficiency anemia type: unspecified iron deficiency Qualified Code(s): D50.9 - Iron deficiency anemia, unspecified Code(s): D50.9 - Iron deficiency anemia, unspecified Status: Acute (3) Anxiety: Code(s): F41.9 - Anxiety disorder, unspecified Status: Acute (4) Depression: Code(s): F32.A - Depression, unspecified Status: Acute Transfer Discharge Sum: Med Medications Active and Home Medications: Home Medications hydroxyzine pamoate 25 mg capsule 25 mg PO QHS 10/18/19 [History Confirmed 02/23/24] sertraline 100 mg tablet 100 mg PO QHS 10/18/19 [History Confirmed 02/23/24] ferrous sulfate 325 mg (65 mg iron) tablet (iron) 325 mg PO DAILY 02/23/24 [History Confirmed 02/23/24] Transfer Discharge Sum: Hosp Hospital Course Hospital course: Yaritza Patel is a 18yo female with hx of anxiety and depression who presented originally to [facility] for possible seizures. She was transferred to our facility for neuro coverage. Please see H&P for details. Patient with new onset seizure-like activity. Patient had witnessed episodes of seizure activity after ingesting marijuana gummy. No family history of seizure activity noted per patient report. Keppra started and now increased to 1500 mg Q12H due to recurrent seizure-like activity. CT brain normal. MRI brain normal. Neurology consulted. EEG showing that the background activity consistent with medication effect such as benzodiazepines. No focal or paroxysmal epileptiform abnormality seen. Patient was on scheduled Diazepam 2mg IV BID and had 2 mg Ativan IV push available as needed for seizures. UDS outside hospital was positive for benzodiazepines and marijuana but she received benzos prior to sample being drawn. UPT negative at OSH and here. Discussed with neurology who recommended LP. LP ordered. BEL ordered. Scheduled diazepam stopped. She has a hx of CARLOS. Hemoglobin 9.8, MCV 92.1. Iron studies normal. Ferritin low at 4.8 to suggest low iron stores. Sickle cell negative. TSH, folate normal. B12 low end of normal. MMA ordered. B12 injection x1. Started on oral B12. Patient was on hydroxyzine and sertraline but has been noncompliant with her medications since July. Neurology recommended continuous EEG monitoring to determine if these are true seizures. Spoke with the grandmother (Kyaw Queen) and verified that she knew the patient. Hospital course was discussed. Recommendation for transfer for continuous EEG monitoring was given. She agrees with transfer and requests [place]. Spoke with the transfer center. Patient has been accepted by Dr. Pardo. Bed was available and patient was transferred to [place] in stable condition on 02/26/24. Time Spent with Patient Time attestation: Total time spent providing and/or coordinating transfer services: 35 minutes Total time spent: Greater than 30 minutes Exam Narrative: AF 98.8 112/63 79 18 100% ra Gen - NARD HEENT - perrl, eomi, tongue midline Neck - neck is supple with no meningismus signs. Chest - CTA bilaterally, nml RR CV - RRR S1/S2. Tele showing occasional episodes of sinus tachycardia Abd - Soft, NT/ND, Positive BS Ext - No pedal edema Neuro -awake and alert. Oriented x4. No focal weaknes
[2024-02-26 11:26] LABS: Rapid Plasma Reagin Non-Reactive (NonReactive)
[2024-02-26 14:34] LABS: Lyme Disease Ab (IgM), Blot NEGATIVE (NEGATIVE); Lyme Disease Ab(IgG), Blot NEGATIVE (NEGATIVE)
[2024-02-27 00:38] LABS: Prolactin 12.4 ng/mL
[2024-02-27 03:54] LABS: Prolactin 11.4 ng/mL
[2024-02-28 05:44] LABS: Methylmalonic Acid 103 nmol/L (55-335)
[2024-02-29 21:13] LABS: West Nile Virus, IgM <0.90 index
--- NOTE | 2024-03-01 12:45 | PC.NURSE ---
WNV is WNL at <.90. Lyme is all non-reactive, except IgG is 58. Had been reactive. Dr. Leyva aware.
== END 2024-02-25 20:37 | disposition short-term general hospital (02) | DRG 101 ==
LOC: ANH3MED 12:02 → ANHIMU 12:31
PROVIDERS: Nurse Practitioner Acute Care; Psychiatry & Neurology Neurology; Admitting Provider Internal Medicine; Visit Provider Internal Medicine
DX: R56.9 Unspecified convulsions (principal); D50.9 Iron deficiency anemia, unspecified; F41.9 Anxiety disorder, unspecified; F32.A Depression, unspecified; Z91.148 Patient's other noncompliance with medication regimen for other reason; I45.10 Unspecified right bundle-branch block; F12.90 Cannabis use, unspecified, uncomplicated
CPT/HCPCS: 36415; 70450; 70553; 80053; 82607; 82728; 82746; 82948; 83540; 83550; 83921; 84146; 84443; 84703; 85025; 85027; 85046; 85660; 86038; 86039; 86592; 86617; 86788; 87491; 87591; 93005; 94640; 95816; 96372; 96374; 96375; A9270; A9577; G0378; G0379; J1650; J1953; J2060; J3360; J3420; J7030

== ENCOUNTER 2024-09-17 16:36 | Emergency (ER) | payer OTHER, MEDICAID, SELFPAY ==
--- OUTSIDE RECORDS SUMMARY | 2024-09-17 16:39 | XMS_ITS | Continuity of Care Document ---
Author Name Anna Vick Address [address] [place], [place] [id number] [place] [address] Organization Unknown Address [address] [place] [address] Medications No known medications Problems No known problems
--- OUTSIDE RECORDS SUMMARY | 2024-09-17 16:39 | XMS_ITS | CONTINUITY OF CARE DOCUMENT ---
Author Name laisha interiano Address Unknown Organization [facility] Address [address] [place] [address] Phone [phone] Care Team Providers Care Colon Therapist Name Role Phone Mariama MCCOY, Afshin Unavailable [phone] Afshin Leslie MD Unavailable [phone] INSURANCE PROVIDERS Payer name Policy type / Coverage type Tara red democrat ID [facility] [employer] Medicare [id number] [facility] [employer] insurance company
--- OUTSIDE RECORDS SUMMARY | 2024-09-17 16:39 | XMS_ITS | Continuity of Care Document ---
Author Name Anna Vick Address [address] [place], [place] [id number] [place] [address] Organization Unknown Address [address] [place] [address] Medications No known medications Problems No known problems
[2024-09-17 16:41] VITALS: BP 151/64; PULSE 118; RESP 20; TEMP 36.8; O2SAT 100
[2024-09-17 20:27] VITALS: BP 130/74; PULSE 100; RESP 18; TEMP 36.8; O2SAT 100
--- OUTSIDE RECORDS SUMMARY | 2024-09-17 22:49 | XMS_ITS | CONTINUITY OF CARE DOCUMENT ---
Author Name laisha interiano Address Unknown Organization [facility] Address [address] [facility] [facility] [address] [place] [address] Phone [phone] Care Team Providers Care Entry Level Buyer Name Role Phone Mariama MCCOY, Afshin Unavailable Afshin Leslie MD Unavailable [phone] INSURANCE PROVIDERS Payer name Policy type / Coverage type Tara red green party ID [facility] [employer] Medicare [id number] [facility] [employer] insurance company
[2024-09-17 22:57] VITALS: BP 130/87; PULSE 99; RESP 16; O2SAT 100
--- NOTE | 2024-09-17 23:44 | ECG_ITS ---
Test Date: 2024-09-18 00:07:48 Measurements Intervals [place] Rate: 91 P: 55 ME: 170 QRS: 1 QRSD: 136 T: 46 QT: 365 QTc: 450 Interpretive Statements SINUS RHYTHM RIGHT BUNDLE BRANCH BLOCK ABNORMAL ECG Compared to ECG 02/23/2024 06:12:13 Sinus arrhythmia no longer present Electronically Signed On 09-18-2024 08:51:03 JANITOR HELPER by Alejandro Bojorquez D.O.
[2024-09-17] MEDS: LORazepam (*CRX) 0.5 MG TABLET PO (23:54)
--- NOTE | 2024-09-18 00:22 | ED_ITS ---
HPI - Anxiety General Chief Complaint: Anxiety Stated Complaint: panic attack Time Seen by Provider: 09/17/24 22:29 History of Present Illness HPI narrative: Patient is a 18-year-old female presents to the ER after experiencing an anxiety attack at her primary care provider's office. 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 Patient reports she went to her PCP for a med check, but started feeling overwhelmed. Her physician called EMS and had pt transferred to the ER for further evaluation. She reports she got anxious and shaky but did not hit her head or lose consciousness. Patient denies any symptoms at the time of examination besides her baseline anxiety. She is requesting a referral to neurologist upon discharge. Patient denies any chest pain, abdominal pain, back pain, or recent fevers. Related Data Home Medications ?Medication ?Instructions ?Recorded ?Confirmed ?Last Taken ?Type sertraline 100 mg tablet 100 mg PO QHS 10/18/19 09/17/24 Unknown History Allergies Allergy/AdvReac Type Severity Reaction Status Date / Time No Known Allergies Allergy Verified 09/17/24 22:59 Review of Systems 2 Review of Systems: All systems reviewed & are unremarkable except as noted in HPI and below PMFSH Past Medical History Medical History Iron deficiency anemia Depression Anxiety Surgical History Surgical History No history of previous surgery Social History Social History Social History: The patient reports that her mother is her emergency contact. However she states that she lives with her grandmother. She denies ever having any history of tobacco use alcohol use or illicit substance use before she is marijuana edibles today. Code status: Full code Surrogate decision maker: Mother Smoking status: Never smoker Alcohol intake: unknown Substance use: unknown Substance use type: does not use Do You Feel Safe in your Home?: Yes Lack of Transportation: No Lack of Food: Never True Current Housing: I Have Housing Concerned About Future Housing: No Difficulty Paying Gas/Electric Bills: No Difficulty Paying for Meds: YES Currently Unemployed: Decline to Answer Education: Decline to Answer Difficulty w/ Childcare or Family Care: No Spiritual care concerns: No Exam 2 Narrative: GENERAL: Well appearing, well-nourished, non-toxic, in no acute distress. HEAD: Normocephalic, atraumatic. NECK: Supple. No adenopathy, no masses. RESPIRATORY: Airway patent, respirations nonlabored. Clear to auscultation bilaterally, no rales, rhonchi, wheezing. CARDIOVASCULAR: Regular rate and rhythm without murmurs, rubs, or gallops. Peripheral pulses 2+ and equal bilaterally. ABDOMINAL: Soft, nontender, nondistended, no hepatosplenomegaly. Normoactive BS. MUSCULOSKELETAL: Moves all extremities. Strength/ROM intact without gross deformities. SKIN: Warm, dry, normal color. No rashes. NEURO: A&O X3. Speech clear. Cranial nerves intact. Steady gait. No ataxic movements. PSYCHIATRIC: Appropriate mood and affect. Normal interaction. Course Vital Signs Vital signs: Vital Signs Temperature 36.8 C 09/17/24 16:41 Pulse Rate 118 H 09/17/24 16:41 Respiratory Rate 20 09/17/24 16:41 Blood Pressure 151/64 H 09/17/24 16:41 Pulse Oximetry 100 09/17/24 16:41 Oxygen Delivery Room Air 09/17/24 16:41 Temperature 36.6 C 09/18/24 01:01 Pulse Rate 67 09/18/24 01:01 Respiratory Rate 18 09/18/24 01:01 Blood Pressure 128/76 09/18/24 01:01 Pulse Oximetry 100 09/18/24 01:01 Oxygen Delivery Room Air 09/17/24 16:41 MDM - Anxiety MDM Narrative Medical decision making narrative: Patient is a 18-year-old female presents to the ER after experiencing an anxiety attack at her primary care provider's office. 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 Patient reports she went to her PCP for a med check, but started feeling overwhelmed. Her physician called EMS and had pt transferred to the ER for further evaluation. She reports she got anxious and shaky but did not hit her head or lose consciousness. Patient denies any symptoms at the time of examination besides her baseline anxiety. She is requesting a referral to neurologist upon discharge. Patient denies any chest pain, abdominal pain, back pain, or recent fevers. Labs Ordered: CBC, CMP, UA, TSH Imaging Ordered: None necessary Medications Ordered: Ativan 0.5 mg p.o. Diagnosis: Acute anxiety attack, urinary tract infection Consults: neurology (outpatient) Patient Education/Shared MDM: Results of lab work shared with patient. She endorses improvement following medication administration. Patient strongly advised to maintain hydration status upon discharge and follow-up with her PCP and neurology. She will be discharged home with a prescription for Bactrim x 5 days. Strict return precautions provided. Patient verbalized understanding is in agreement with plan. Vital signs stable at time of discharge. All questions answered. Differential Diagnosis Differential diagnosis: Likely hyperventilation, panic disorder and acute anxiety Lab Data Attestation: I reviewed the patient's lab results. 09/18/24 00:00 09/18/24 00:00 Labs: Lab Results 09/18/24 09/18/24 Range/Units 00:00 00:04 WBC 7.8 (4.5-10.0) K/mm3 RBC 4.19 L (4.2-5.4) M/mm3 Hgb 10.7 L (12.0-15.0) g/dL Hct 35.2 L (37.0-47.0) % MCV 84.0 (80-100) fl MCH 25.5 L (26-34) pg MCHC 30.4 L (32-36) g/dl RDW 15.3 H (11.5-14.5) % Plt Count 216 (150-375) k/mm3 MPV 10.6 H (7.4-10.4) fl Immature Gran % (Auto) 0.1 (0-0.5) % Neut % (Auto) 59.1 (45.5-73.1) % Lymph % (Auto) 29.3 (18.3-44.2) % [place] % (Auto) 9.6 H (2.6-8.5) % Eos % (Auto) 1.0 (0-4.4) % Baso % (Auto) 0.9 (0.2-1.2) % Lymph # (Auto) 2.29 (0.9-3.2) K/mm3 [place] # (Auto) 0.8 H (0.1-0.6) K/mm3 Eos # (Auto) 0.1 (0-0.3) K/mm3 Baso # (Auto) 0.1 (0.0-0.1) K/mm3 Abs Immat Gran (auto) 0.01 (0.00-0.031) K/mm3 Absolute Neuts (auto) 4.6 (1.3-6.7) K/mm3 Absolute Nucleated RBC 0.000 (0.0-0.012) K/mm3 Nucleated RBC % 0.0 (0.0-0.2) % Platelet Estimate Adequate (Adequate) % Immature Plt Fraction 5.3 (0.9-11.2) % Hypochromasia 1+ Anisocytosis 1+ Schistocytes None seen Sodium 137 (137-145) mmol/L Potassium 4.5 (3.4-5.0) mmol/L Chloride 107 (98-107) mmol/L Carbon Dioxide 18 L (22-30) mmol/L Anion Gap 12 (4-12) mmol/L BUN 10 (7-17) mg/dL Creatinine 0.76 (0.7-1.0) mg/dL Estim Creat Clear Calc 99 ml/min Estimated GFR > 60 (59 - ) Glucose 86 (65-110) mg/dL Calcium 8.9 (8.4-10.2) mg/dL Total Bilirubin 0.6 (0.2-1.3) mg/dL AST 30 (14-36) U/L ALT 15 (6-35) U/L Alkaline Phosphatase 61 (38-126) U/L Total Protein 7.0 (6.3-8.2) g/dL Albumin 4.0 (3.5-5.1) g/dL TSH (Reflex) 1.890 (0.465-4.68) uIU/mL Urine Color Yellow (Yellow) Urine Appearance Cloudy H (Clear) Urine pH 5.5 (5.0-9.0) Ur Specific [place] 1.023 (1.001-1.035) Urine Protein Negative (Negative) mg/dL Urine Glucose (UA) Negative (Negative) mg/dL Urine Ketones Negative (Negative) mg/dL Ur Blood (Man) Negative (Negative) Urine Nitrate Negative (Negative) Urine Bilirubin Negative (Negative) Urine Urobilinogen 0.2 (<2.0) mg/dL Add Ur Microanalysis Reviewed Leukocyte Esterase Rfl 1+ H (Negative) KENNEDY/UL Urine RBC 6-10 H (0-2) /hpf Urine WBC 11-20 H (0-3) /hpf Ur Squamous Epith Cells Occasional (Few) /hpf Urine Bacteria 3+ H /hpf Urine Casts 0-2 Urine Yeast (Budding) Present H (None) /hpf POC Urine HCG, Qual Negative (Negative) Discharge Plan Discharge Clinical Impression: Acute anxiety, Panic disorder, Urinary tract infection Patient Disposition: Home, Self-Care Condition: Stable Instructions: Antibiotic Form, Urinary Tract Infection in Women (ED), Panic Disorder (ED) Additional Instructions: Please return to the ER with an worsening symptoms. Follow-up with primary care provider and neurology as soon as possible. Take all regular medications as prescribed. Patient Language: [place] Prescriptions: New sulfamethoxazole-trimethoprim [Bactrim DS] 800-160 mg tablet 1 tablet PO Q12H 5 Days Qty: 10 0RF No Action sertraline 100 mg tablet 100 mg PO QHS Follow-up/Referrals: PHYSICIAN,CHEMICAL CHECKER [Primary Care Provider] - Time of Disposition: 01:49
[2024-09-18 00:27] LABS: Add Urine Microscopic? YES; Appearance Urine Cloudy (Clear); Bacteria Urine 3+ /hpf; Bilirubin Urine Negative (Negative); Blood Urine Negative (Negative); Budding Yeast Urine Present /hpf; Color Urine Yellow (Yellow); Glucose Urine UA Negative (Negative); Ketones Urine Negative (Negative); Leukocyte Esterase Ur 1+ LEU/UL (Negative); Need Manual Microscopic Reviewed; Nitrate Urine Negative (Negative); Non Pathogenic Casts 0-2; Protein Urine Negative (Negative); Specific Grav Ur 1.023 (1.001-1.035); Squamous Epithelial Cell Urine Occasional /hpf (Few); Urobilinogen Urine 0.2 mg/dL (<2.0); pH Urine 5.5 (5.0-9.0)
[2024-09-18 00:30] LABS: BEDSIDEPREGUCG Negative (Negative)
[2024-09-18 00:32] LABS: Basophils Absolute Auto 0.1 K/mm3 (0.0-0.1); Basophils Percent Auto 0.9 % (0.2-1.2); Eosinophils Absolute Auto 0.1 K/mm3 (0-0.3); Hematocrit 35.2 % (37.0-47.0); Hemoglobin 10.7 g/dL (12.0-15.0); Immature Granulocyte Absolute 0.01 K/mm3 (0.00-0.031); Immature Granulocyte Percent A 0.1 % (0-0.5); Immature Platelet Fraction Pct 5.3 % (0.9-11.2); Lymphocytes Absolute Auto 2.29 K/mm3 (0.9-3.2); Lymphocytes Percent Auto 29.3 % (18.3-44.2); Mean Corpuscular HGB Conc 30.4 g/dl (32-36); Mean Corpuscular Hemoglobin 25.5 pg (26-34); Mean Platelet Volume 10.6 fl (7.4-10.4); Monocytes Absolute Auto 0.8 K/mm3 (0.1-0.6); Monocytes Percent Auto 9.6 % (2.6-8.5); Neutrophils Absolute Auto 4.6 K/mm3 (1.3-6.7); Neutrophils Percent Auto 59.1 % (45.5-73.1); Platelet Count Result 216 k/mm3 (150-375); Red Blood Count 4.19 M/mm3 (4.2-5.4); Red Cell Distribution Width 15.3 % (11.5-14.5); White Blood Count 7.8 K/mm3 (4.5-10.0)
[2024-09-18 00:41] LABS: Alanine Aminotransferase 15 U/L (6-35); Alkaline Phosphatase 61 U/L (38-126); Anion Gap 12 mmol/L (4-12); Aspartate Amino Transferase 30 U/L (14-36); Bilirubin,Total 0.6 mg/dL (0.2-1.3); Blood Urea Nitrogen 10 mg/dL (7-17); Calcium 8.9 mg/dL (8.4-10.2); Carbon Dioxide 18 mmol/L (22-30); Chloride 107 mmol/L (98-107); Estimated CRCL calculation 99 ml/min; Estimated Glomerular Filt Rate > 60; Glucose 86 mg/dL (65-110); Potassium 4.5 mmol/L (3.4-5.0); Sodium 137 mmol/L (137-145)
[2024-09-18 00:59] LABS: Platelet Estimate Adequate (Adequate)
[2024-09-18 01:00] LABS: Anisocytosis 1+; Hypochromasia 1+; Schistocytes None Seen
[2024-09-18 01:01] VITALS: BP 128/76; PULSE 67; RESP 18; TEMP 36.6; O2SAT 100
[2024-09-18] MEDS: SULFAMETHOXAZOLE/TRIMETHOPRIM 800/160 MG DS TABLET 1 TAB PO (01:57)
== END 2024-09-18 02:09 | disposition home or self-care (01) ==
PROVIDERS: Emergency Provider Registered Nurse
DX: N39.0 Urinary tract infection, site not specified (principal); F41.0 Panic disorder [episodic paroxysmal anxiety]; F32.A Depression, unspecified; D64.9 Anemia, unspecified
CPT/HCPCS: 36415; 80053; 81001; 81025; 84443; 85025; 85055; 87086; 93005; 99283; A9270